=== PATIENT | female | born 1960 | race Caucasian/White ===

== ENCOUNTER → 2024-02-07 14:29 | Outpatient (REF) | payer OTHER, SELFPAY | LOC: HWRAD 14:29 | PROVIDERS: ATTENDING PHYSICIAN Physician Assistant Medical | DX: Z00.00 Encounter for general adult medical examination without abnormal findings (principal); Z12.31 Encounter for screening mammogram for malignant neoplasm of breast; Z78.0 Asymptomatic menopausal state | CPT/HCPCS: 77063; 77067; 77080 ==

== ENCOUNTER → 2024-06-20 10:16 | Outpatient (REF) | payer OTHER, SELFPAY | LOC: HWRAD 10:16 | PROVIDERS: ATTENDING PHYSICIAN Physician Assistant Medical | DX: M79.671 Pain in right foot (principal) | CPT/HCPCS: 73630 ==

== ENCOUNTER → 2025-01-25 11:07 | Outpatient (REF) | payer OTHER, SELFPAY | LOC: HWRAD 11:07 | PROVIDERS: ATTENDING PHYSICIAN Physician Assistant; FAMILY PHYSICIAN Physician Assistant Medical | DX: M77.41 Metatarsalgia, right foot (principal) | CPT/HCPCS: 73700 ==